=== PATIENT | female | born 1990 | race Caucasian/White ===

== ENCOUNTER 2019-09-17 02:33 | Inpatient (IN) | payer OTHER ==
[~2019-09-17] VITALS: Ht 172.7 cm; Wt 84.1 kg
[~2019-09-17 02:33] MED LIST: IBUP-1222 PO; PREN1TAB60 PO
[2019-09-17 02:42] VITALS: BP 146/85
[2019-09-17] MEDS ORDERED: D5%-LACTATED RINGERS 1,000 ML IV SCH (02:53)
[2019-09-17] MEDS ORDERED: OXYTOCIN 30U/ 0.9% NaCL 500ML 500 ML IV ONE (02:53)
[2019-09-17] MEDS ORDERED: LIDOCAINE 1%, 20ML ONE (02:57)
[2019-09-17] MEDS ORDERED: MISOPROSTOL 200 MCG TABLET ONE (02:57)
[2019-09-17] MEDS ORDERED: NEWBORN KIT ONE (02:57)
[2019-09-17] MEDS ORDERED: OXYTOCIN 30U/ 0.9% NaCL 500ML 500 ML ONE (02:58)
[2019-09-17] MEDS ORDERED: AMPICILLIN 2 GM in SODIUM CHLORIDE 0.9% 100 ML IVPB STA (03:00)
[2019-09-17] MEDS ORDERED: FENTANYL PF 100 MCG/2ML IVPush PRN (03:00)
[2019-09-17] MEDS ORDERED: FENTANYL PF 100 MCG/2ML IV PRN (03:00)
[2019-09-17] MEDS ORDERED: TERBUTALINE 1 MG/ML, 1ML IVPush PRN (03:00)
[2019-09-17] MEDS ORDERED: TERBUTALINE 1 MG/ML, 1ML SQ PRN (03:00)
[2019-09-17] MEDS ORDERED: ONDANSETRON 2MG/ML, 2ML IVPush PRN (03:00)
[2019-09-17] MEDS ORDERED: FENTANYL/BUPIV./NS/PF 250 ML EPIDCONT SCH ×2 (03:02→08:41)
[2019-09-17 03:11] LABS: BASOPHILS # (AUTO) 0.03 x10^3/uL (0-0.1); BASOPHILS % (AUTO) 0 % (0-1); EOSINOPHILS % (AUTO) 1 % (1-7); LYMPHOCYTES # (AUTO) 1.82 x10^3/uL (1-3.4); LYMPHOCYTES % (AUTO) 20 % (22-44); MD NO; MEAN CORPUSCULAR HEMOGLOBIN 32.7 pg (27.0-34.8); MEAN CORPUSCULAR HGB CONC 34.1 g/dL (32.4-35.8); MEAN CORPUSCULAR VOLUME 95.9 fL (80-100); MONOCYTES # (AUTO) 0.74 x10^3/uL (0.2-0.8); MONOCYTES % (AUTO) 8 % (2-9); NEUTROPHILS # (AUTO) 6.38 x10^3/uL (1.8-6.8); NEUTROPHILS % (AUTO) 70 % (42-75); PLATELET COUNT 130 x10^3/uL (130-400); RED BLOOD COUNT 4.14 x10^6/uL (3.82-5.3); RED CELL DISTRIBUTION WIDTH 13.4 % (9.6-15.2)
[2019-09-17] MEDS: LACTATED RINGERS 1,000 ML IV SCH ×3 (03:20→07:46)
[2019-09-17] MEDS ORDERED: AMPICILLIN 1 GM in SODIUM CHLORIDE 0.9% 50 ML IVPB SCH (03:30)
[2019-09-17] MEDS ORDERED: OXYTOCIN 30U/ 0.9% NaCL 500ML 500 ML IV PRN (05:21)
[2019-09-17] MEDS ORDERED: FENTANYL PF 100 MCG/2ML ONE (07:08)
[2019-09-17] MEDS ORDERED: BUPIVACAINE 0.25% ONE (07:59)
[2019-09-17] MEDS ORDERED: LACTATED RINGERS 1,000 ML IV SCH (08:41)
[2019-09-17] MEDS ORDERED: LACTATED RINGERS 1,000 ML IVBOLUS PRN (09:00)
[2019-09-17] MEDS ORDERED: EPHEDRINE 50 MG/ML, 1ML IVPush PRN (09:00)
[2019-09-17] MEDS: AMPICILLIN 1 GM in SODIUM CHLORIDE 0.9% 100 ML IVPB SCH ×2 (11:18→14:45)
[2019-09-17] MEDS ORDERED: IBUPROFEN 600 MG TABLET ONE (12:03)
[2019-09-17] MEDS: OXYTOCIN 30U/ 0.9% NaCL 500ML 500 ML IV SCH ×2 (12:04→20:57)
[2019-09-17] MEDS ORDERED: METHYLERGONOVINE 0.2 MG/ML IM PRN (12:30)
[2019-09-17] MEDS ORDERED: SIMETHICONE 80 MG CHEW TAB PO PRN (12:30)
[2019-09-17] MEDS ORDERED: ACETAMINOPHEN 325 MG TABLET PO PRN (12:30)
[2019-09-17] MEDS ORDERED: ONDANSETRON 2MG/ML, 2ML IV PRN (12:30)
[2019-09-17] MEDS ORDERED: CARBOPROST TROMETHAMINE 250 MCG/ML, 1ML IM PRN (12:30)
[2019-09-17] MEDS ORDERED: MISOPROSTOL 200 MCG TABLET PR PRN (12:30)
[2019-09-17] MEDS ORDERED: DOCUSATE 100 MG CAPSULE PO PRN (12:30)
[2019-09-17] MEDS ORDERED: OXYcodone/APAP 5/325MG TABLET PO PRN (12:30)
[2019-09-17] MEDS: IBUPROFEN 600 MG TABLET PO PRN ×2 (13:54→20:15)
[2019-09-17 14:00] VITALS: BP 125/73
[2019-09-17 19:40] LABS: BASOPHILS # (AUTO) 0.02 x10^3/uL (0-0.1); BASOPHILS % (AUTO) 0 % (0-1); EOSINOPHILS # (AUTO) 0.05 x10^3/uL (0-0.4); EOSINOPHILS % (AUTO) 0 % (1-7); LYMPHOCYTES % (AUTO) 13 % (22-44); MD SCAN; MEAN CORPUSCULAR HEMOGLOBIN 32.3 pg (27.0-34.8); MEAN CORPUSCULAR HGB CONC 33.8 g/dL (32.4-35.8); MEAN CORPUSCULAR VOLUME 95.7 fL (80-100); MEAN PLATELET VOLUME 9.8 fL (7.4-10.4); MONOCYTES # (AUTO) 0.86 x10^3/uL (0.2-0.8); MONOCYTES % (AUTO) 7 % (2-9); NEUTROPHILS # (AUTO) 9.46 x10^3/uL (1.8-6.8); NEUTROPHILS % (AUTO) 79 % (42-75); PLATELET COUNT 113 x10^3/uL (130-400); RED BLOOD COUNT 3.68 x10^6/uL (3.82-5.3); RED CELL DISTRIBUTION WIDTH 13.5 % (9.6-15.2)
[2019-09-17 20:30] VITALS: BP 128/75
[2019-09-18 00:41] VITALS: BP 119/68
[2019-09-18] MEDS: IBUPROFEN 600 MG TABLET PO PRN ×2 (02:01→08:07)
[2019-09-18 05:50] VITALS: BP 114/65
[2019-09-18] MEDS: OXYTOCIN 30U/ 0.9% NaCL 500ML 500 ML IV SCH (07:41)
[2019-09-18 07:52] VITALS: BP 122/77
[2019-09-18] MEDS ORDERED: PRENATAL VIT/IRON/FA 1 EACH TABLET PO SCH (09:00)
[2019-09-18] MEDS ORDERED: IBUP-1223 PO (13:09)
[2019-09-18] MEDS ORDERED: DOCU-131 PO (13:09)
== END 2019-09-18 13:59 | disposition home or self-care (01) | DRG 807 ==
LOC: LDOP 02:33 → LDIP 02:54 → 2NW 13:45
PROVIDERS: ADMIT Obstetrics & Gynecology; ATTEND Obstetrics & Gynecology
PROC: 10E0XZZ Delivery of Products of Conception, External Approach (ICD-10-PCS; principal; 2019-09-17)
PROC: 0KQM0ZZ Repair Perineum Muscle, Open Approach (ICD-10-PCS; 2019-09-17)
PROC: 3E0R3BZ Introduction of Anesthetic Agent into Spinal Canal, Percutaneous Approach (ICD-10-PCS; 2019-09-17)
PROC: 00HU33Z Insertion of Infusion Device into Spinal Canal, Percutaneous Approach (ICD-10-PCS; 2019-09-17)
DX: O99.824 Streptococcus B carrier state complicating childbirth (principal); Z37.0 Single live birth; Z3A.39 39 weeks gestation of pregnancy; O70.1 Second degree perineal laceration during delivery; Z91.048 Other nonmedicinal substance allergy status
CPT/HCPCS: 36415; 85025; 86850; 86900; G0378; J0290; J3010; J2590; J7120

== ENCOUNTER 2021-06-26 03:35 | Inpatient (IN) | payer OTHER ==
[~2021-06-26] VITALS: Ht 172.7 cm; Wt 81.0 kg
[~2021-06-26 03:35] MED LIST changes: +DOCU-131 PO; +IBUP-1223 PO
[2021-06-26 04:29] VITALS: BP 124/86
[2021-06-26] MEDS ORDERED: OXYTOCIN 30U/ 0.9% NaCL 500ML 500 ML IV ONE (04:30)
[2021-06-26] MEDS ORDERED: OXYTOCIN 30U/ 0.9% NaCL 500ML 500 ML IV PRN ×2 (04:30→06:00)
[2021-06-26] MEDS ORDERED: TERBUTALINE 1 MG/ML, 1ML SQ PRN (04:30)
[2021-06-26] MEDS ORDERED: PENICILLIN GK 2,500,000 UNITS in DEXTROSE 5% 100 ML IVPB SCH (04:30)
[2021-06-26] MEDS ORDERED: LACTATED RINGERS 1,000 ML IV SCH ×2 (04:30→06:30)
[2021-06-26] MEDS ORDERED: FENTANYL PF 100 MCG/2ML IVPush PRN (04:30)
[2021-06-26] MEDS ORDERED: TERBUTALINE 1 MG/ML, 1ML IVPush PRN (04:30)
[2021-06-26] MEDS ORDERED: FENTANYL PF 100 MCG/2ML IV PRN (04:30)
[2021-06-26] MEDS ORDERED: PENICILLIN GK 5,000,000 UNITS in DEXTROSE 5% 100 ML IVPB ONE (04:30)
[2021-06-26] MEDS ORDERED: ONDANSETRON 2MG/ML, 2ML IVPush PRN ×2 (04:30→06:30)
[2021-06-26 04:44] LABS: BASOPHILS % (AUTO) 0 % (0-1); EOSINOPHILS % (AUTO) 1 % (1-7); LYMPHOCYTES % (AUTO) 17 % (22-44); MEAN CORPUSCULAR HEMOGLOBIN 31.2 pg (27.0-34.8); MEAN CORPUSCULAR HGB CONC 34.5 g/dL (32.4-35.8); MONOCYTES % (AUTO) 8 % (2-9); NEUTROPHILS % (AUTO) 74 % (42-75); PLATELET COUNT 116 x10^3/uL (130-400); RED BLOOD COUNT 3.63 x10^6/uL (3.82-5.3); RED CELL DISTRIBUTION WIDTH 13.6 % (9.6-15.2)
[2021-06-26] MEDS ORDERED: BUPIVACAINE 0.25% ONE (05:55)
[2021-06-26] MEDS ORDERED: FENTANYL/BUPIV./NS/PF 250 ML EPIDCONT ONE (05:55)
[2021-06-26] MEDS ORDERED: LACTATED RINGERS 1,000 ML IVBOLUS PRN (06:30)
[2021-06-26] MEDS ORDERED: NALOXONE 0.4 MG/ML, 1ML IVPush PRN (06:30)
[2021-06-26] MEDS ORDERED: DIPHENHYDRAMINE 50 MG/ML, 1ML IVPush PRN (06:30)
[2021-06-26] MEDS ORDERED: FENTANYL/BUPIV./NS/PF 250 ML EPIDCONT SCH (06:30)
[2021-06-26] MEDS ORDERED: EPHEDRINE 50 MG/ML, 1ML IVPush PRN (06:30)
[2021-06-26] MEDS ORDERED: NEWBORN KIT ONE (07:39)
[2021-06-26] MEDS: OXYTOCIN 30U/ 0.9% NaCL 500ML 500 ML IV PRN (09:38)
[2021-06-26] MEDS ORDERED: MISOPROSTOL 200 MCG TABLET PR PRN (12:00)
[2021-06-26] MEDS ORDERED: ACETAMINOPHEN 325 MG TABLET PO PRN ×2 (12:00)
[2021-06-26] MEDS ORDERED: CALCIUM CARBONATE 500 MG TAB.CHEW PO PRN (12:00)
[2021-06-26] MEDS ORDERED: ONDANSETRON 2MG/ML, 2ML IV PRN (12:00)
[2021-06-26] MEDS ORDERED: OXYTOCIN 30U/ 0.9% NaCL 500ML 500 ML IV SCH (12:00)
[2021-06-26] MEDS ORDERED: BISACODYL 10 MG SUPP PR PRN (12:00)
[2021-06-26] MEDS ORDERED: HYDROcodone/APAP 5/325 TABLET PO PRN ×2 (12:00)
[2021-06-26] MEDS ORDERED: SIMETHICONE 80 MG CHEW TAB PO PRN (12:00)
[2021-06-26] MEDS: OXYTOCIN 30U/ 0.9% NaCL 500ML 500 ML IV SCH ×2 (13:06→22:00)
[2021-06-26 13:45] VITALS: BP 115/71
[2021-06-26 17:30] VITALS: BP 113/69
[2021-06-26 19:00] VITALS: BP 115/75
[2021-06-26 19:22] LABS: BASOPHILS % (AUTO) 0 % (0-1); EOSINOPHILS % (AUTO) 0 % (1-7); LYMPHOCYTES % (AUTO) 11 % (22-44); MEAN CORPUSCULAR HEMOGLOBIN 30.8 pg (27.0-34.8); MEAN CORPUSCULAR HGB CONC 34.2 g/dL (32.4-35.8); MONOCYTES % (AUTO) 8 % (2-9); NEUTROPHILS % (AUTO) 81 % (42-75); PLATELET COUNT 124 x10^3/uL (130-400); RED BLOOD COUNT 3.62 x10^6/uL (3.82-5.3); RED CELL DISTRIBUTION WIDTH 13.5 % (9.6-15.2)
[2021-06-26] MEDS: IBUPROFEN 600 MG TABLET PO PRN (21:33)
[2021-06-26] MEDS: DOCUSATE 100 MG CAPSULE PO PRN (21:33)
[2021-06-27 00:30] VITALS: BP 94/58
[2021-06-27 04:00] VITALS: BP 104/64
[2021-06-27] MEDS: OXYTOCIN 30U/ 0.9% NaCL 500ML 500 ML IV PRN (06:55)
[2021-06-27] MEDS: OXYTOCIN 30U/ 0.9% NaCL 500ML 500 ML IV SCH (06:56)
[2021-06-27] MEDS: IBUPROFEN 600 MG TABLET PO PRN (07:48)
[2021-06-27] MEDS: DOCUSATE 100 MG CAPSULE PO PRN (07:48)
[2021-06-27 07:50] VITALS: BP 120/75
[2021-06-27] MEDS ORDERED: PRENATAL VIT/IRON/FA 1 EACH TABLET PO SCH (09:00)
[2021-06-27] MEDS ORDERED: IBUP-1222 PO (10:24)
== END 2021-06-27 12:55 | disposition home or self-care (01) | DRG 807 ==
LOC: LDOP 03:35 → LDIP 04:32 → 2NW 14:19
PROVIDERS: ADMIT Obstetrics & Gynecology; ATTEND Obstetrics & Gynecology
PROC: 10E0XZZ Delivery of Products of Conception, External Approach (ICD-10-PCS; principal; 2021-06-26)
PROC: 0HQ9XZZ Repair Perineum Skin, External Approach (ICD-10-PCS; 2021-06-26)
PROC: 3E0R3BZ Introduction of Anesthetic Agent into Spinal Canal, Percutaneous Approach (ICD-10-PCS; 2021-06-26)
PROC: 00HU33Z Insertion of Infusion Device into Spinal Canal, Percutaneous Approach (ICD-10-PCS; 2021-06-26)
DX: O77.0 Labor and delivery complicated by meconium in amniotic fluid (principal); Z37.0 Single live birth; O99.824 Streptococcus B carrier state complicating childbirth; Z3A.39 39 weeks gestation of pregnancy; Z20.822 Contact with and (suspected) exposure to COVID-19; O99.02 Anemia complicating childbirth; O70.0 First degree perineal laceration during delivery
CPT/HCPCS: 36415; 85025; 86592; 86850; 86900; 87635; G0378; J2540; J2590; J7120